=== PATIENT | female | born 1950 | race Caucasian/White ===

== ENCOUNTER 2017-03-10 20:10 | Observation (INO) | payer SELFPAY ==
[2017-03-10] MEDS ORDERED: ONDANSETRON HCL 4 MG/2 ML VIAL ONE (21:09)
[2017-03-10] MEDS ORDERED: DIAZEPAM 10 MG/2 ML SYR ONE (21:09)
[2017-03-10 21:30] LABS: BLOOD UREA NITROGEN 14 mg/dL (7-17); CALCIUM 9.1 mg/dL (8.4-10.2); CHLORIDE 88 mmol/L (98-107); EST GLOMERULAR FILTRATION RATE > 60 mL/min; GLUCOSE 125 mg/dL (70-100); POTASSIUM 3.5 mmol/L (3.5-5.1); SODIUM 125 mmol/L (137-145)
[2017-03-10] MEDS ORDERED: HOME MEDICATION LIST NEEDED 1 EA EACH MISC ONE (21:48)
[2017-03-10] MEDS ORDERED: ONDANSETRON HCL 4 MG/2 ML VIAL IV PRN (21:54)
[2017-03-10] MEDS ORDERED: NORMAL SALINE 500 ML IV ONE (21:59)
[2017-03-10] MEDS ORDERED: NORMAL SALINE 1,000 ML IV SCH (22:00)
[2017-03-10] MEDS ORDERED: ACETAMINOPHEN 1,000 MG/100 ML VIAL IV ONE (22:01)
--- NOTE | 2017-03-10 22:23 | ER NURSING DOCUMENTATION ---
Nurse's Notes [facility] Name:Nery Palacios Age:66 yrs Sex:Female :1950 Arrival Date:03/10/2017 Time:20:06 Bed4 Private MD: Diagnosis:Hyponatremia;Dehydration;Cephalgia-: Altitude Illness Presentation: 03/10 20:09 Acuity: BRANDON 3 rh 20:29 Presenting complaint: Patient states: Pt arrived from [place] yesterday, hiked to [facility] today and after the hike she became nauseated, threw up, acquired a headache and became very dizzy. Pt has history of motion sickness. Transition of care: Home. 20:29 Method Of Arrival: Private Vehicle Triage Assessment: 20:31 General: Appears in no apparent distress, Behavior is cooperative. Pain: Complains of rh pain in HEADACHE. EENT: Oral mucosa is moist. Neuro: Level of Consciousness is awake, alert, obeys commands, Oriented to person, place, time, event. Neuro: Reports dizziness, headache. Cardiovascular: Capillary refill < 3 seconds Chest pain is denied. Respiratory: Airway is patent Respiratory effort is even, unlabored, Denies shortness of breath. GI: Abdomen is non- distended Abd is soft and non tender Reports nausea, vomiting. : No deficits noted. Derm: Skin is intact, is healthy with good turgor, Skin is pink, warm & dry. Historical: - Allergies: No known drug Allergies; - Home Meds: 1. Unknown BP med 2. Unknown Decreasing Urination med - PMHx: Hypertension; MOTION SICKNESS; - PSHx: None; - Tetanus: < 10 years. - Ebola Screening: : Patient negative for fever greater than or equal to 101.5 degrees Fahrenheit, and additional compatible Ebola Virus Disease symptoms. - Immunization history: Flu Vaccine < 1 year. - Social history: Smoking status: Patient states was never smoker of tobacco. Screenin:32 Infectious Disease Risk None. Abuse screen: Denies threats or abuse. Denies injuries rh from another. Nutritional screening: No deficits noted. Assessment: 20:32 See Triage Assessment done by same RN. rh Vital Signs: 20:31 BP 167 / 70; Pulse 59; Resp 17; Temp 98.2(TE); Pulse Ox 92% on R/A; Weight 61.23 kg; rh Height 5 ft. 2 in. (157.48 cm); Pain 6/10; 20:31 Body Mass Index 24.69 (61.23 kg, 157.48 cm) rh Lois Coma Score: 21:01 Eye Response: spontaneous(4). Verbal Response: oriented(5). Motor Response: obeys cd commands(6). Total: 15. ED Course: 20:06 Patient arrived in ED. em3 20:07 Virgilio Brown MD is Attending Physician. cd 20:09 Triage completed. rh 20:20 Notified ED Physician of patient's arrival and chief complaint. Dr. Brown notified. rh 20:29 Felicitas Rosales is Primary Nurse. rh 20:32 Valuables Remains with patient Patient has correct armband on for positive rh identification. Placed in gown. Bed in low position. Call light in reach. Side rails up X 1. Warm blanket given. Pillow given. Family accompanied patient. 20:32 Labs drawn. By breadman Held in ED. Inserted saline lock: 20 gauge in right antecubital em3 area and blood collected. 21:58 Sarika Karimi MD is Admitting Physician. cd Administered Medications: 20:51 Drug: NS 0.9% 1000 ml; Route: IV; Rate: bolus; Site: right antecubital; rh 21:49 Follow up: IV Status: Completed infusion; IV Intake: 1000ml rh 20:55 Drug: Zofran 4 mg; Route: IVP; Infused Over: 2 mins; Site: right antecubital; rh 21:49 Follow up: Response: Nausea is decreased rh 20:59 Drug: Valium 2 mg; Route: IVP; Infused Over: 2 mins; Site: right antecubital; rh 21:49 Follow up: Response: No adverse reaction rh 21:48 Drug: Ofirmev ; MAX of 1000 mg, give 20 mg/kg; Route: IV; Rate: per protocol; Infused rh Over: 15 mins; Site: right antecubital; 22:05 Follow up: IV Status: Completed infusion rh 21:48 Drug: NS 0.9% 500 ml; Route: IV; Rate: bolus; Site: right antecubital; rh 22:21 Follow up: IV Status: Completed infusion; Infusion continued upon admission rh 22:21 Drug: Ativan 0.5 mg; Route: PO; 22:21 Follow up: Response: No adverse reaction Point of Care Testing: Urine Dip: 21:31 pH: 8.0; ; Specific [place]: 1.015; Ketones: Small; Glucose: Negative; Protein: em3 Negative; Leukocytes: Negative; Nitrite: Negative ; Blood: Negative; Bilirubin: Negative ; Urobilinogen: Normal Intake: 21:49 IV: 1000ml; Total: 1000ml. Outcome: 22:00 Decision to Admit by Provider. cd 22:21 Admitted to Med/surg accompanied by nurse, family with patient, via stretcher, with chart. 22:21 Condition: improved 22:21 Discharge Assessment: Patient awake, alert and oriented x 3. No cognitive and/or functional deficits noted. Patient verbalized understanding of disposition instructions. 22:21 Discharge instructions given to patient, Instructed on need to admit 22:22 Patient left the ED. Signatures: Virgilio Brown MD MD cd Meiklejohn, Eric em3 Hofsess, Rachel
--- NOTE | 2017-03-10 22:23 | ER PHYSICIAN DOCUMENTATION ---
Physician Documentation [facility] Name:Nery Palacios Age:66 yrs Sex:Female :1950 Arrival Date:03/10/2017 Time:20:06 Bed4 Private MD: Virgilio Dyson Disposition: 03/10/17 22:00 Admit ordered for Sarika Karimi. Preliminary diagnosis are Hyponatremia, Dehydration, Cephalgia - : Altitude Illness. - Bed requested for Medical/Surgical. - Condition is Fair. - Problem is new. - Symptoms are unchanged. 23 HR OBS Yes HPI: 03/10 20:25 This 66 yrs old Female presents to ER via Private Vehicle with complaints of cd Dizziness. 20:25 The patient presents with dizziness, generalized weakness, sense of spinning, vertigo. cd Onset: The symptom(s)/episode began/occurred acutely, today, at 15:00. Context: [place]. The patient arrived yesterday from [place], [place], She had 1/2 beer last night. She hiked to 9,800' elevation to [facility] today and reports drinking a lot of water. She has had similar episodes of Dizziness / Vertigo in the past. She has had a mild headache, but no fever / chills, neck stiffness, chest pain, SOB or abdominal pain. She vomited earlier, has nausea now and denies diarrhea., occurred while the patient was riding a bus.. Modifying factors: The symptoms are alleviated by holding head still, the symptoms are aggravated by movement of head. Associated signs and symptoms: Pertinent positives: headache, nausea, Pertinent negatives: abdominal pain, chest pain, confusion, diaphoresis, palpitations, shortness of breath. Severity of symptoms: At their worst the symptoms were moderate in the emergency department the symptoms are unchanged. Patient's baseline: Neuro: alert and fully oriented, Motor: no deficits, Ambulation: walks without assistance, Speech: normal, The patient has a previous history of vertigo. Historical: - Allergies: No known drug Allergies; - Home Meds: 1. Unknown BP med 2. Unknown Decreasing Urination med - PMHx: Hypertension; MOTION SICKNESS; - PSHx: None; - Tetanus: < 10 years. - Ebola Screening: : Patient negative for fever greater than or equal to 101.5 degrees Fahrenheit, and additional compatible Ebola Virus Disease symptoms. - Immunization history: Flu Vaccine < 1 year. - Social history: Smoking status: Patient states was never smoker of tobacco. ROS: 21:00 ENT: Negative for injury, pain, epistaxis and discharge. cd Neck: Negative for injury, pain, stiffness and swelling. Cardiovascular: Negative for chest pain, palpitations, edema and pleuritic pain. Respiratory: Negative for shortness of breath, dyspnea on exertion, cough, sputum production, wheezing, hemoptysis and pleuritic chest pain. Back: Negative for injury, pain or muscle spasms. : Negative for injury, bleeding, discharge, dysuria, frequency, urgency and swelling. MS/Extremity: Negative for injury, deformity, edema, calf tenderness, pain or coldness. Skin: Negative for injury, rash, itching and discoloration. 21:00 Neuro: Negative for headache, weakness, numbness, tingling, and seizure. cd 21:00 Constitutional: Positive for poor PO intake, Negative for chills, fever. 21:00 Abdomen/GI: Positive for nausea, vomiting, anorexia, Negative for abdominal pain, diarrhea, hematemesis, black/tarry stool, rectal bleeding. 21:00 Neuro: Positive for dizziness, headache, weakness, Vertigo and sensation of movement, Negative for altered mental status, gait disturbance, numbness, speech changes, syncope, tingling, visual changes. 21:00 All other systems are negative. Exam: Head/Face: Normocephalic, atraumatic. Eyes: Pupils equal round and reactive to light, extra-ocular motions intact. Lids and lashes normal. Conjunctiva and sclera are non-icteric and not injected. Cornea within normal limits. Periorbital areas with no swelling, redness, or edema. ENT: Nares patent. No nasal discharge, no septal abnormalities noted. Tympanic membranes are normal and external auditory canals are clear. Oropharynx with no redness, swelling, or masses, exudates, or evidence of obstruction, uvula midline. Mucous membranes dry Neck: Trachea midline, no thyromegaly or masses palpated, and no cervical lymphadenopathy. Supple, full range of motion without nuchal rigidity, or vertebral point tenderness. No Meningismus. Cardiovascular: Regular rate and rhythm with a normal S1 and S2. No gallops, murmurs, or rubs. Normal PMI, no JVD. No pulse deficits. Respiratory: Lungs have equal breath sounds bilaterally, clear to auscultation and percussion. No rales, rhonchi or wheezes noted. No increased work of breathing, no retractions or nasal flaring. Abdomen/GI: Soft, non-tender, with normal bowel sounds. No distension or tympany. No guarding or rebound. No evidence of tenderness throughout. Back: No spinal tenderness. No costovertebral tenderness. Full range of motion. Skin: Warm, dry with normal turgor. Normal color with no rashes, no lesions, and no evidence of cellulitis. MS/ Extremity: Pulses equal, no cyanosis. Neurovascular intact. Full, normal range of motion. 21:01 Neuro: Awake and alert, GCS 15, oriented to person, place, time, and situation. cd Cranial nerves II-XII grossly intact. Motor strength 5/5 in all extremities. Sensory grossly intact. Cerebellar exam normal. Normal gait. 21:01 Constitutional: The patient appears alert, awake, non-diaphoretic, non-toxic, well developed, well nourished, in obvious distress, moderately distressed. 21:01 Neuro: Orientation: is normal, to person, place & time. Mentation: is normal, Memory: is normal, Cranial nerves: CN II- XII are normal as tested, Cerebellar function: is grossly normal, Motor: is normal, Sensation: is normal, Gait: is steady. Vital Signs: 20:31 BP 167 / 70; Pulse 59; Resp 17; Temp 98.2(TE); Pulse Ox 92% on R/A; Weight 61.23 kg; rh Height 5 ft. 2 in. (157.48 cm); Pain 6/10; 20:31 Body Mass Index 24.69 (61.23 kg, 157.48 cm) rh [place] Coma Score: 21:01 Eye Response: spontaneous(4). Verbal Response: oriented(5). Motor Response: obeys cd commands(6). Total: 15. MDM: 20:07 Patient medically screened. cd 20:30 Data interpreted: Pulse oximetry: on room air is 92 %. Interpretation: normal. cd 21:02 Differential diagnosis: generalized weakness, hypovolemia, idiopathic dizziness, cd vertigo, Dehydration, Acute Altitude Illness. 21:04 Data reviewed: vital signs, nurses notes, old medical records, and as a result, I will cd continue to observe the patient, administer IV fluids, NS bolus, NS maintenence, prescribe sedation medication, diazepam. 21:56 Physician consultation: Sarika Karimi MD was called at 21:50, was contacted at cd 21:52, regarding admission, to the floor, consult, patient's condition, and will see patient in inpatient room, tomorrow. Admission orders: after a detailed discussion of the patient's condition and case, the admit orders are written by me. 21:57 Counseling: I had a detailed discussion with the patient and/or guardian regarding: the cd historical points, exam findings, and any diagnostic results supporting the discharge/admit diagnosis, lab results, the need for further work-up and treatment in the hospital. 21:58 Response to treatment: the patient's symptoms have mildly improved after treatment, and cd as a result, I will admit patient, administer IV fluids, NS bolus, administer pain medication, acetaminophen. 03/10 21:32 Order name: BASIC METABOLIC PANEL; Complete Time: 21:43 [facility] 03/10 21:43 Interpretation: Normal Except: SODIUM 125; CHLORIDE 88; Hypochloremic Hyponatremia, cd Dehydration. 03/11 06:25 Order name: BASIC METABOLIC PANEL [facility] 03/10 20:33 Order name: Iv Saline Lock; Complete Time: 20:33 03/10 20:51 Order name: Pulse Ox Continuous; Complete Time: 20:52 cd Dispensed Medications: 20:51 Drug: NS 0.9% 1000 ml; Route: IV; Rate: bolus; Site: right antecubital; rh 21:49 Follow up: IV Status: Completed infusion; IV Intake: 1000ml rh 20:55 Drug: Zofran 4 mg; Route: IVP; Infused Over: 2 mins; Site: right antecubital; rh 21:49 Follow up: Response: Nausea is decreased rh 20:59 Drug: Valium 2 mg; Route: IVP; Infused Over: 2 mins; Site: right antecubital; rh 21:49 Follow up: Response: No adverse reaction rh 21:48 Drug: Ofirmev ; MAX of 1000 mg, give 20 mg/kg; Route: IV; Rate: per protocol; Infused rh Over: 15 mins; Site: right antecubital; 22:05 Follow up: IV Status: Completed infusion rh 21:48 Drug: NS 0.9% 500 ml; Route: IV; Rate: bolus; Site: right antecubital; rh 22:21 Follow up: IV Status: Completed infusion; Infusion continued upon admission rh 22:21 Drug: Ativan 0.5 mg; Route: PO; rh 22:21 Follow up: Response: No adverse reaction rh Point of Care Testing: Urine Dip: 21:31 pH: 8.0; ; Specific [place]: 1.015; Ketones: Small; Glucose: Negative; Protein: em3 Negative; Leukocytes: Negative; Nitrite: Negative ; Blood: Negative; Bilirubin: Negative ; Urobilinogen: Normal Signatures: Virgilio Brown MD MD cd Hofsess, Rachel
[2017-03-10] MEDS ORDERED: LORazepam 0.5 MG TABLET ONE (22:31)
[2017-03-11] MEDS ORDERED: ACETAMINOPHEN 325 MG TABLET PO PRN (04:00)
[2017-03-11 05:42] VITALS: BP 136/70; PULSE 55; RESP 12; TEMP 98; O2SAT 90
[2017-03-11 06:07] LABS: BLOOD UREA NITROGEN 11 mg/dL (7-17); CHLORIDE 105 mmol/L (98-107); EST GLOMERULAR FILTRATION RATE > 60 mL/min; GLUCOSE 84 mg/dL (70-100); POTASSIUM 3.7 mmol/L (3.5-5.1); SODIUM 137 mmol/L (137-145)
--- NOTE | 2017-03-11 09:19 | DC SUMMARY: IM Note ---
Discharge Summary: IM/Peds Provider: Date of Admission: 03/10/17 Admitting Provider: JOAQUIN DE LA PAZ MD Attending Provider: JOAQUIN DE LA PAZ MD Discharging Provider: JOAQUIN DE LA PAZ MD Primary Care Provider: Discharge Date: 03/11/17 - Diagnosis (1) Altitude sickness Status: Acute Qualifiers: Encounter type: initial encounter Qualified Code(s): T70.29XA - Other effects of high altitude, initial encounter (2) Dehydration with hyponatremia Status: Acute - Time Spent with Patient Total time spent providing and/or coordinating discharge services: Time with patient DS: Greater than 30 minutes Discharge - Patient/Caregiver Discharge Instructions Activity Level: Light until doing better Diet: Regular Overall discharge status: patient is back to baseline Disposition: HOME, SELF-CARE Discharge Summary Data - Medication History Medication History: Home Medications Alendronate Sodium 70 mg PO MO 03/11/17 Amlodipine Besylate [Norvasc*] 5 mg PO DAILY 03/11/17 Oxybutynin Chloride ER [Oxybutynin Chloride ER*] 5 mg PO DAILY 03/11/17 Sertraline HCl [Zoloft*] 100 mg PO DAILY 03/11/17 metoprolol TARTRATE [Metoprolol Tartrate*] 50 mg PO BID 03/11/17 traZODone HCL [Trazodone HCl*] 50 mg PO HS 03/11/17 Inpatient Medications 03/11/17 10:00 Amlodipine Besylate [Norvasc] 5 mg PO DAILY Oxybutynin Chloride ER [Ditropan ER] 5 mg PO DAILY Sertraline HCl [Zoloft] 100 mg PO DAILY metoprolol TARTRATE [Lopressor] 50 mg PO BID 03/11/17 21:00 traZODone HCL [Desyrel] 50 mg PO HS 03/15/17 09:08 Alendronate Sodium [Alendronate Sodium] 70 mg PO MO Procedures and tests throughout hospitalization: Pending Orders 03/11/17 10:00 Amlodipine Besylate [Norvasc] 5 mg PO DAILY Oxybutynin Chloride ER [Ditropan ER] 5 mg PO DAILY Sertraline HCl [Zoloft] 100 mg PO DAILY metoprolol TARTRATE [Lopressor] 50 mg PO BID 03/11/17 21:00 traZODone HCL [Desyrel] 50 mg PO HS 03/15/17 09:08 Alendronate Sodium [Alendronate Sodium] 70 mg PO MO Labs on day of discharge: Labs from last 24 hours 03/11/17 04:50 Sodium 137 D Potassium 3.7 Chloride 105 Carbon Dioxide 22 BUN 11 Creatinine 0.7 GFR Calculation > 60 Glucose 84 Calcium 9.0 - Impressions Patient was admitted with nausea, vomiting, headache and hyponatremia after a hike yesterday. She was hydrated with normal saline, and her sodium returned to normal. She was educated about precautions regarding altitude and hiking. She will take things easy today, and resume lower level hiking tomorow. She had taken a dose of Tramadol 100mg on the airplane for her back pain, which may have contributed to the problem, and she will not be taking that from now on. Follow up will be with her PCP in [place], or with the clinic here if needed before departure. IM: Discharge Physical Exam - I&O/Vital Signs I&O: Intake & Output 03/10/17 03/11/17 03/11/17 21:59 05:59 13:59 Intake Total 650 Output Total 1650 Balance -1000 Weight 61.235 kg Intake: IV 600 Right Antecubital 600 Oral 50 Output: Urine 1650 Other: Urine Appearance Clear Urine Color Pale Voiding Method Toilet # Voids 3 Vital Signs: Last Vital Signs Temp 36.7 C 03/11/17 05:40 Pulse 55 L 03/11/17 05:40 Resp 12 03/11/17 05:40 BP 136/70 03/11/17 05:40 Pulse Ox 90 03/11/17 05:40 Oxygen Delivery Method Room Air - Constitutional General appearance: Present: average body habitus. Absent: acute distress - Head Head exam: Present: normal inspection - Eye Eye exam: Present: EOMI, PERRL. Absent: conjunctival injection Pupils: Present: PERRL - ENT ENT exam: Present: mucous membranes moist - Neck Neck exam: Present: full ROM - Respiratory Respiratory exam: Present: clear - Cardiovascular Cardiovascular exam: Present: RRR - GI/Abdominal GI/Abdominal exam: Present: normal bowel sounds, soft. Absent: tenderness - Extremities Exam Extremities exam: Present: normal capillary refill. Absent: calf tenderness, edema - Neurological Exam Neurological exam: Present: CN II-XII intact, normal gait, oriented X3, reflexes normal - Psychiatric Psychiatric exam: Present: normal affect - Allied Health Notes Allied health notes reviewed: nursing
--- NOTE | 2017-03-11 09:27 | HISTORY AND PHYSICAL ---
PROVIDER: Date of Admission: 03/10/17 Admitting Provider: JOAQUIN DE LA PAZ MD Attending Provider: JOAQUIN DE LA PAZ MD Primary Care Provider: CHIEF COMPLAINT: Nausea, vomiting, dizziness HISTORY OF PRESENT ILLNESS: Patient is a 66-year-old visitor from [place], who arrived in [place] on . She went on a hike to [facility] yesterday, and on her return in the tour bus, she developed nausea, vomiting, dizziness, headache and general malaise. She was brought to the emergency room, where she was found to have marked hyponatremia. She was treated with appropriate antiemetics, and hydrated with normal saline. This morning she feels completely well, has no headache, no lightheadedness, and is able to walk without difficulty. Nausea and vomiting did resolve in the emergency room. PAST MEDICAL HISTORY: 1. Hypertension for several years with no underlying cardiac issues. She has been taking metoprolol twice daily, and more recently amlodipine was added to the mix. 2. Anxiety disorder for which she takes sertraline. 3. Osteoporosis for which she is taking alendronate, calcium, and vitamin D. PAST SURGICAL HISTORY: No prior surgeries. SOCIAL HISTORY: Patient is , and is accompanied by her today. She has 3 grown children, and 3 grandchildren. 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 She was a smoker until age 30, and very occasionally drinks a beer. Denies any drug use, including marijuana. FAMILY HISTORY: Mother is alive at age 19, with lumbar spine degenerative disease but no other issues. Father at 86 with metastatic prostate cancer. Patient has 3 sisters, the older of whom has just been diagnosed with Parkinson' s disease. The other 2 sisters are healthy. She has 1 brother who is also healthy. MEDICATIONS: 1. Alendronate 70 mg every Wednesday. 2. Amlodipine 5 mg daily. 3. Metoprolol tartrate 50 mg twice daily. 4. Oxybutynin extended release 5 mg daily 5. Sertraline 100 mg daily 6. Trazodone 50 mg daily 7. Tramadol 50 mg as needed for back pain up to 4 times daily. ALLERGIES: NKDA REVIEW OF SYSTEMS: Positive for recent headache which has now resolved, no blurred vision. Positive for generalized weakness yesterday also resolved. No sore throat no oral lesions. Neck no neck pain or stiffness. Respiratory no shortness of breath or cough. Cardiovascular no chest pain palpitations chest pressure. GI no diarrhea or constipation. Positive for nausea and vomiting as per the HPI. no dysuria or hematuria. Musculoskeletal weakness yesterday now resolved. Neurological dizziness and lightheadedness have also resolved today. VITAL SIGNS: Temperature 36.7C blood pressure 136/70 pulse 55 respirations 12 oxygen saturation 90% on room air at rest PHYSICAL EXAMINATION: General: the patient is alert and comfortable with normal body habitus. HEENT: extraocular movements are intact, pupils equal round reactive to light, sclera are anicteric. Oropharynx shows moist mucosa without lesions. Neck: Full range of motion, no thyromegaly or masses noted, no bruits. Lungs: Clear to auscultation and percussion bilaterally. Cardiovascular: Regular rate and rhythm without murmurs rubs or gallops appreciated, PMI nondisplaced. Abdomen: Soft nontender bowel sounds normoactive no organomegaly no masses palpated. Extremities: No cyanosis clubbing or edema. Calves are soft. Dorsalis pedis pulse 2+ bilaterally, tibialis posterior pulse 1+ bilaterally. Neurological: Cranial nerves are grossly intact, no nystagmus is evident. Motor strength is 5 out of 5, deep tendon reflexes 2+ and symmetrical, gait within normal limits. LABORATORY: Chemistry done in the emergency room showed a sodium of 125 with a chloride of 88. The remainder of the chemistry was normal. Urinalysis was also normal. Assessment and Plan - Date of Encounter Date of Encounter: 03/11/17 (1) Altitude sickness Status: Acute Qualifiers: Encounter type: initial encounter Qualified Code(s): T70.29XA - Other effects of high altitude, initial encounter Assessment and plan: Patient has altitude sickness, as a result of traveling from [place], and then the very next day performing a strenuous hike. I suspect the problem is exacerbated by her taking fairly high dose of tramadol on the aircraft, drug to which she is not accustomed. Discussed with her at length how to gradually increase her altitude when she is hiking, and to make sure she adequately eats and drinks. I have also suggested that she consider holding her amlodipine in the mornings when she goes hiking, because she can take it later in the day when she is fully hydrated and rested. The administration of normal saline, seems to have totally improved her symptoms, and I feel she can be safely discharged today. Current Visit: Yes (2) Dehydration with hyponatremia Status: Acute Assessment and plan: Patient's hyponatremia resolved quickly, with the administration of normal saline. It was felt to be caused by dehydration from her vomiting. She now has no symptoms, and is able to be discharged with instructions as noted above. Current Visit: Yes - Time Spent With Patient Total time spent with greater than 50% in coordination of care (as documented) at patient's floor/unit and/or counseling patient: 25 - 35 minutes
[2017-03-11] MEDS ORDERED: SERTRALINE HCL 50 MG TABLET PO SCH (10:00)
[2017-03-11] MEDS ORDERED: AMLODIPINE BESYLATE 5 MG TABLET PO SCH (10:00)
[2017-03-11] MEDS ORDERED: OXYBUTYNIN CHLORIDE ER 5 MG TABLET PO SCH (10:00)
[2017-03-11] MEDS ORDERED: traZODone HCL 50 MG TABLET PO SCH (21:00)
[2017-03-15] MEDS ORDERED: NON-FORMULARY MEDICATION (Alendronate Sodium [Alendronate Sodium] 70 MG) PO SCH (09:08)
== END 2017-03-11 09:00 | disposition home or self-care (01) ==
LOC: ER 20:10 → IN 22:11
PROVIDERS: ADMIT Internal Medicine; ATTEND Internal Medicine
DX: T70.29XA Other effects of high altitude, initial encounter (principal); E87.1 Hypo-osmolality and hyponatremia; I10 Essential (primary) hypertension; M81.0 Age-related osteoporosis without current pathological fracture; F41.8 Other specified anxiety disorders; Z79.899 Other long term (current) drug therapy
CPT/HCPCS: 36415; 80048; 96361; 96365; 96375; 99285; G0378; J2405; J3360; J7030; J7040